=== PATIENT | female | born 2000 | race Two or more races ===

== ENCOUNTER → 2020-06-03 | Outpatient (CLI) | payer BC ==
--- NOTE | 2020-06-03 17:00 | RAD ---
Examination: US OB >14 WEEKS History: Reason: SMALL FOR DATES / Spl. Instructions: / History: Comparison/Correlation: None Findings: OB ultrasound exam was performed. Single living intrauterine gestation is present with heart rate of 152 bpm. movement including cardiac activity noted. Placenta is evident along the posterior wall and is grade 1. anatomy identified: Four-chamber heart, three-vessel cord and insertion, urinary bladder, stomach, bilateral kidneys, spine, and brain. Bilateral upper and lower extremities also seen. Cephalic lie noted. Biparietal diameter of 4.12 cm corresponds to 18 weeks 3 days Head circumference of 14.27 cm corresponding to 17 weeks 4 days Abdominal circumference 11.19 cm corresponding to 17 weeks 0 day Femur length 2.31 cm corresponds to 17 weeks 0 day Head circumference to abdominal circumference ratio is 1.2. Estimated weight is 180 g Average ultrasound age is 17 weeks 4 days Ultrasound EDC is 11/07/2020 Impression: Single living intrauterine gestation with average ultrasound age of 17 weeks 4 days. Electronically signed by: Rigoberto Toscano MD (06/03/2020 4:58 PM) [id number]
== END ==
LOC: US 15:08
PROVIDERS: ATTEND Family Medicine
DX: O26.842 Uterine size-date discrepancy, second trimester (principal); Z3A.17 17 weeks gestation of pregnancy
CPT/HCPCS: 76805

== ENCOUNTER → 2020-10-22 | Outpatient (CLI) | payer BC ==
--- NOTE | 2020-10-22 15:06 | RAD ---
EXAM: OB ULTRASOUND, > 14 WEEKS HISTORY: Small for dates. COMPARISON: 06/03/2020. TECHNIQUE: Multiple grayscale images, color Doppler, and M-mode images of the uterus are obtained. FINDINGS: There is a single intrauterine gestation in cephalic presentation. The placenta is grade 2 and quiller runner ior in location without evidence of placenta previa. The amount of amniotic fluid appears appropriate . Amniotic fluid index is 10.4 cm. The cervix is obscured Biometrical data: BPD = 8.38 cm for 33 weeks 5 days and the 1st percentile. HC = 31.38 cm for 35 weeks 1 days and the 1st percentile. AC = 32.11 cm for 36 weeks 0 days and the 20th percentile. FL = 6.71 cm for 34 weeks 4 days and the 1st percentile. HC/AC ratio = 0.98. Overall, the estimated sonographic gestational age is 34 weeks and 6 days for an estimated date of de livery of 11/27/2020. The estimated date of delivery provided by the last menstrual period is 11/07/2020 . Estimated weight is 2642 grams. This corresponds with the 13th percentile for a gestational age of 37 weeks and 5 days based on LMP. The anatomy is not formally assessed. The heart is normal at 139 bpm. IMPRESSION: 1. Single intrauterine fetus with normal heart rate in cephalic presentation with gestational age bas ed on ultrasound measurements of 34 weeks and 6 days. The estimated weight is at the 13th perce ntile for a gestational age of 37 weeks and 5 days based on LMP. 2. anatomy is not formally assessed on this exam. Electronically signed by: Niurka King MD (10/22/2020 3:03 PM) [id number]
== END ==
LOC: US 14:22
PROVIDERS: ATTEND Family Medicine
DX: O36.5930 Maternal care for other known or suspected poor fetal growth, third trimester, not applicable or unspecified (principal)
CPT/HCPCS: 76805

== ENCOUNTER 2020-10-27 12:44 | Observation (INO) | payer BC ==
[2020-10-27] MEDS ORDERED: IV RINGERS,LACTATED 1000ML 1,000 ML IV PRN (13:15)
[2020-10-27 13:20] LABS: BILIRUBIN,URINE NEGATIVE (NEG); CLARITY,URINE CLEAR; COLOR,URINE YELLOW; NITRITE,URINE NEGATIVE (NEG); PROTEIN,URINE NEGATIVE (NEG-TRACE); UROBILINOGEN,URINE 0.2 mg/dL (0.2 mg/dL)
[2020-10-27 13:37] LABS: BACTERIA,URINE FEW /HPF (0-FEW); RBC,URINE 0 /HPF (0-2)
== END 2020-10-27 15:50 | disposition home or self-care (01) ==
LOC: 3 SO LND 12:44
PROVIDERS: ADMIT Family Medicine; ATTEND Family Medicine
DX: O26.853 Spotting complicating pregnancy, third trimester (principal); Z20.822 Contact with and (suspected) exposure to COVID-19; O62.9 Abnormality of forces of labor, unspecified; Z3A.38 38 weeks gestation of pregnancy; Z79.899 Other long term (current) drug therapy
CPT/HCPCS: 59025; 81001; 87086; G0378; G0379

== ENCOUNTER 2020-10-27 19:35 | Inpatient (IN) | payer BC ==
[~2020-10-27] VITALS: Ht 149.9 cm; Wt 56.0 kg
[2020-10-27] MEDS ORDERED: IV RINGERS,LACTATED 1000ML 1,000 ML IV SCH ×2 (20:00→20:30)
[2020-10-27] MEDS ORDERED: ACETAMINOPHEN 325 MG TABLET. PO PRN ×2 (20:00→21:30)
[2020-10-27 20:21] LABS: BILIRUBIN,URINE NEGATIVE (NEG); CLARITY,URINE CLEAR; COLOR,URINE YELLOW; NITRITE,URINE NEGATIVE (NEG); PH,URINE 6.5 (<5.0-8.0); PROTEIN,URINE NEGATIVE (NEG-TRACE); UROBILINOGEN,URINE 0.2 mg/dL (0.2 mg/dL)
[2020-10-27] MEDS ORDERED: OXYTOCIN 30 UNIT/500 ML PREMIX 500 ML IV ONE (20:23)
[2020-10-27] MEDS ORDERED: 0.9 % SODIUM CHLORIDE 10 ML DISP.SYRIN. IV PRN ×2 (20:30→21:30)
[2020-10-27] MEDS ORDERED: ONDANSETRON PF 4 MG/2 ML VIAL. IVP PRN (20:30)
[2020-10-27] MEDS ORDERED: BUTORPHANOL 2 MG/ML VIAL. IVP PRN ×2 (20:30)
[2020-10-27] MEDS ORDERED: LIDOCAINE 1% PF 30 ML VIAL. INJ PRN (20:30)
[2020-10-27] MEDS ORDERED: fentaNYL PF VIAL 100 MCG/2 ML VIAL IVP PRN ×2 (20:30)
[2020-10-27] MEDS ORDERED: TERBUTALINE 1 MG/ML VIAL. SQ PRN (20:30)
[2020-10-27] MEDS ORDERED: IBUPROFEN 400 MG TABLET. PO PRN (20:30)
[2020-10-27] MEDS ORDERED: OXYTOCIN 30 UNIT/500 ML PREMIX 500 ML IV PRN ×2 (20:30→21:30)
[2020-10-27 20:32] LABS: BACTERIA,URINE FEW /HPF (0-FEW); RBC,URINE 0 /HPF (0-2)
[2020-10-27 20:43] LABS: BASO % 0 % (0-3); EOS # 0.1 x10^3/uL (0.0-0.7); EOS % 1 % (0-3); HEMATOCRIT 39.1 % (36.0-47.0); HEMOGLOBIN 13.3 g/dL (12.0-15.5); LYMPH % 17 % (24-48); MEAN CORPUSCULAR HEMOGLOBIN 31 pg (25-35); MEAN CORPUSCULAR HGB CONC 34 g/dL (31-37); MEAN CORPUSCULAR VOLUME 91 fL (79-100); MONO # 0.8 x10^3/uL (0.0-1.1); MONO % 7 % (0-9); NEUT # 8.7 x10^3/uL (1.8-7.7); NEUT % 75 % (31-73); PLATELET COUNT 214 x10^3/uL (140-400); RED BLOOD COUNT 4.29 x10^6/uL (3.50-5.40); RED CELL DISTRIBUTION WIDTH 12.7 % (11.5-14.5); WHITE BLOOD COUNT 11.6 x10^3/uL (4.0-11.0)
--- NOTE | 2020-10-27 21:27 | PDOC1 ---
OB - History Hx of Present Care: Good Care Ultrasounds: Normal mid trimester US Obstetrical Complications: None Medical Complications: None Past Family/Social History * Past Medical, Surgical, Family and Obstetric Histories reviewed from chart. Rubella: Immune RPR/VDRL: Negative GBS Status: Negative HBsAG: Negative OB - Chief Complaint & HPI Date of Admission: Date of Admission: October 27, 2020 at 20:14 Chief Complaint/History : 2 Para: 1 EGA: 39 Reason for admission: active labor Admission Nurse Assessment Rev: Yes OB - Admission Exam Physical Exam HEENT: Normal Heart: Regular Rate Lungs: Clear Abdomen: Gravid, Non tender, Soft Extremities: Edema Reflexes: Normal Cervical Dilatation: 7cm Effacement: 75% Station: -1 Membranes: Intact Heart Rate: Normal Accelerations: Accelerations Present Decelerations: No decelerations Contractions on Admission: < 5 Minutes Apart Intensity: Moderate Text A: 39 wks IUP Active labor P : Admit labor management. JOSE JUAN RANGEL Jr, MD October 27, 2020 21:27
--- NOTE | 2020-10-27 21:28 | PDOC ---
VAGINAL DELIVERY DATE DATE: 10/27/20 TIME: 21:27 : 2 Para: 2 EGA: 39 VAGINAL DELIVERY: VTX VACCUM ASSISTED: No PLACENTA: Spontaneous 8/9 SEX: Male WEIGHT Weight [ 3370 gm ] Nuchal Cord: No Amniotic Fluid: Clear PAIN: Natural EPISIOTOMY: No EXTENSION: Yes (2nd degree midline laceration and Left labial laceration) REPAIRED WITH 2-0 vicryl and 3-0 chromic EBL 300 ml COMPLICATIONS none CONDITION pt. stable Signs of Intrauterine Infectio: None Shoulder Dystocia: No JOSE JUAN RANGEL Jr, MD October 27, 2020 21:28
[2020-10-27] MEDS ORDERED: PHENYLEPH/MINERAL OIL/PETROLAT RECTAL OINTMENT TUBE. RC PRN (21:30)
[2020-10-27] MEDS ORDERED: TDaP (Adacel) per PROTOCOL. MC PRN (21:30)
[2020-10-27] MEDS ORDERED: MAGNESIUM HYDROXIDE 2,400 MG/30 ML ORAL.SUSP. PO PRN (21:30)
[2020-10-27] MEDS ORDERED: HYDROCORTISONE 1% TOPICAL OINTMENT 30GM TUBE. TP PRN (21:30)
[2020-10-27] MEDS ORDERED: BENZOCAINE 20% TOPICAL AEROSOL SPRAY 57GM CAN. TP PRN (21:30)
[2020-10-27] MEDS ORDERED: MMR per PROTOCOL. MC PRN (21:30)
[2020-10-27] MEDS ORDERED: ZOLPIDEM 5 MG TABLET. PO PRN (21:30)
[2020-10-27] MEDS ORDERED: diphenhydrAMINE HCL 25 MG CAPSULE PO PRN (21:30)
[2020-10-27] MEDS ORDERED: SIMETHICONE 80 MG TAB.CHEW PO PRN (21:30)
[2020-10-27] MEDS ORDERED: oxyCODONE/APAP 5/325 1 TAB TABLET PO PRN (21:30)
[2020-10-27] MEDS ORDERED: MAG HYDROX/ALUMINUM HYD/SIMETH 30 ML ORAL.SUSP PO PRN (21:30)
[2020-10-27] MEDS: IBUPROFEN 400 MG TABLET. PO PRN (23:22)
[2020-10-28 00:13] VITALS: BP 106/57
[2020-10-28 05:04] VITALS: BP 101/55
[2020-10-28 06:15] LABS: BASO % 0 % (0-3); EOS # 0.1 x10^3/uL (0.0-0.7); EOS % 1 % (0-3); HEMATOCRIT 34.9 % (36.0-47.0); HEMOGLOBIN 11.8 g/dL (12.0-15.5); LYMPH # 1.9 x10^3/uL (1.0-4.8); LYMPH % 13 % (24-48); MEAN CORPUSCULAR HEMOGLOBIN 31 pg (25-35); MEAN CORPUSCULAR HGB CONC 34 g/dL (31-37); MEAN CORPUSCULAR VOLUME 93 fL (79-100); MONO # 0.9 x10^3/uL (0.0-1.1); MONO % 6 % (0-9); NEUT # 12.3 x10^3/uL (1.8-7.7); NEUT % 81 % (31-73); PLATELET COUNT 221 x10^3/uL (140-400); RED BLOOD COUNT 3.75 x10^6/uL (3.50-5.40); RED CELL DISTRIBUTION WIDTH 12.4 % (11.5-14.5); WHITE BLOOD COUNT 15.2 x10^3/uL (4.0-11.0)
[2020-10-28] MEDS: FERROUS SULFATE 325 MG TABLET. PO SCH ×2 (08:00→17:00)
[2020-10-28 08:55] VITALS: BP 102/57
[2020-10-28] MEDS: DOCUSATE SODIUM 100 MG CAPSULE. PO PRN ×2 (09:13→17:07)
[2020-10-28] MEDS: MULTIVITAMIN with MINERAL TABLET. PO SCH (09:13)
[2020-10-28] MEDS ORDERED: ACETAMINOPHEN 500 MG TABLET PO PRN (09:30)
[2020-10-28 12:01] VITALS: BP 104/59
--- NOTE | 2020-10-28 12:01 | PDOC ---
PROGRESS NOTES Date of Service DATE: 10/28/20 TIME: 11:59 Subjective Subjective Patient feels well PPD#1, Good pain control. Decreased bleeding. Tolerating diet. Ambulating Objective Objective Vital Signs Date Time Temp Pulse Resp B/P (MAP) Pulse Ox O2 Delivery O2 Flow Rate FiO2 10/28/20 08:55 98.4 71 16 102/57 (72) Room Air 98.4 10/28/20 05:04 98 Physical Exam Abdomen: Normal bowel sounds, Other (uterus firm) Heart: Regular rate Extremities: No edema General: Alert Lungs: Clear to auscultation Assessment Assessment PPD #1 Plan Plan of Care Routine care - Network Mgr phone used Comment Review of Relevant I have reviewed the following items trevon (where applicable) has been applied. Labs Laboratory Tests Test 10/27/20 20:09 10/27/20 20:10 10/27/20 20:15 10/28/20 05:40 White Blood Count 11.6 x10^3/uL (4.0-11.0) 15.2 x10^3/uL (4.0-11.0) Red Blood Count 4.29 x10^6/uL (3.50-5.40) 3.75 x10^6/uL (3.50-5.40) Hemoglobin 13.3 g/dL (12.0-15.5) 11.8 g/dL (12.0-15.5) Hematocrit 39.1 % (36.0-47.0) 34.9 % (36.0-47.0) Mean Corpuscular Volume 91 fL (79-100) 93 fL (79-100) Mean Corpuscular Hemoglobin 31 pg (25-35) 31 pg (25-35) Mean Corpuscular Hemoglobin Concent 34 g/dL (31-37) 34 g/dL (31-37) Red Cell Distribution Width 12.7 % (11.5-14.5) 12.4 % (11.5-14.5) Platelet Count 214 x10^3/uL (140-400) 221 x10^3/uL (140-400) Neutrophils (%) (Auto) 75 % (31-73) 81 % (31-73) Lymphocytes (%) (Auto) 17 % (24-48) 13 % (24-48) Monocytes (%) (Auto) 7 % (0-9) 6 % (0-9) Eosinophils (%) (Auto) 1 % (0-3) 1 % (0-3) Basophils (%) (Auto) 0 % (0-3) 0 % (0-3) Neutrophils # (Auto) 8.7 x10^3/uL (1.8-7.7) 12.3 x10^3/uL (1.8-7.7) Lymphocytes # (Auto) 2.0 x10^3/uL (1.0-4.8) 1.9 x10^3/uL (1.0-4.8) Monocytes # (Auto) 0.8 x10^3/uL (0.0-1.1) 0.9 x10^3/uL (0.0-1.1) Eosinophils # (Auto) 0.1 x10^3/uL (0.0-0.7) 0.1 x10^3/uL (0.0-0.7) Basophils # (Auto) 0.0 x10^3/uL (0.0-0.2) 0.0 x10^3/uL (0.0-0.2) Treponema pallidum Antibody Nonreactive (Nonreactive) Urine Collection Type Unknown Urine Color Yellow Urine Clarity Clear Urine pH 6.5 (<5.0-8.0) Urine Specific [place] <=1.005 (1.000-1.030) Urine Protein Negative mg/dL (NEG-TRACE) Urine Glucose (UA) 100 mg/dL (NEG) Urine Ketones (Stick) Negative mg/dL (NEG) Urine Blood Negative (NEG) Urine Nitrite Negative (NEG) Urine Bilirubin Negative (NEG) Urine Urobilinogen Dipstick 0.2 mg/dL (0.2 mg/dL) Urine Leukocyte Esterase Negative (NEG) Urine RBC 0 /HPF (0-2) Urine WBC 5-10 /HPF (0-4) Urine Squamous Epithelial Cells Few /LPF Urine Bacteria Few /HPF (0-FEW) SARS-CoV-2 RNA (PIOTR) Negative (Negative) SARS-CoV-2 Antigen (Rapid) Negative (NEGATIVE) Laboratory Tests Test 10/27/20 20:09 10/27/20 20:10 10/27/20 20:15 10/28/20 05:40 White Blood Count 11.6 x10^3/uL (4.0-11.0) 15.2 x10^3/uL (4.0-11.0) Red Blood Count 4.29 x10^6/uL (3.50-5.40) 3.75 x10^6/uL (3.50-5.40) Hemoglobin 13.3 g/dL (12.0-15.5) 11.8 g/dL (12.0-15.5) Hematocrit 39.1 % (36.0-47.0) 34.9 % (36.0-47.0) Mean Corpuscular Volume 91 fL (79-100) 93 fL (79-100) Mean Corpuscular Hemoglobin 31 pg (25-35) 31 pg (25-35) Mean Corpuscular Hemoglobin Concent 34 g/dL (31-37) 34 g/dL (31-37) Red Cell Distribution Width 12.7 % (11.5-14.5) 12.4 % (11.5-14.5) Platelet Count 214 x10^3/uL (140-400) 221 x10^3/uL (140-400) Neutrophils (%) (Auto) 75 % (31-73) 81 % (31-73) Lymphocytes (%) (Auto) 17 % (24-48) 13 % (24-48) Monocytes (%) (Auto) 7 % (0-9) 6 % (0-9) Eosinophils (%) (Auto) 1 % (0-3) 1 % (0-3) Basophils (%) (Auto) 0 % (0-3) 0 % (0-3) Neutrophils # (Auto) 8.7 x10^3/uL (1.8-7.7) 12.3 x10^3/uL (1.8-7.7) Lymphocytes # (Auto) 2.0 x10^3/uL (1.0-4.8) 1.9 x10^3/uL (1.0-4.8) Monocytes # (Auto) 0.8 x10^3/uL (0.0-1.1) 0.9 x10^3/uL (0.0-1.1) Eosinophils # (Auto) 0.1 x10^3/uL (0.0-0.7) 0.1 x10^3/uL (0.0-0.7) Basophils # (Auto) 0.0 x10^3/uL (0.0-0.2) 0.0 x10^3/uL (0.0-0.2) Treponema pallidum Antibody Nonreactive (Nonreactive) Urine Collection Type Unknown Urine Color Yellow Urine Clarity Clear Urine pH 6.5 (<5.0-8.0) Urine Specific [place] <=1.005 (1.000-1.030) Urine Protein Negative mg/dL (NEG-TRACE) Urine Glucose (UA) 100 mg/dL (NEG) Urine Ketones (Stick) Negative mg/dL (NEG) Urine Blood Negative (NEG) Urine Nitrite Negative (NEG) Urine Bilirubin Negative (NEG) Urine Urobilinogen Dipstick 0.2 mg/dL (0.2 mg/dL) Urine Leukocyte Esterase Negative (NEG) Urine RBC 0 /HPF (0-2) Urine WBC 5-10 /HPF (0-4) Urine Squamous Epithelial Cells Few /LPF Urine Bacteria Few /HPF (0-FEW) SARS-CoV-2 RNA (PIOTR) Negative (Negative) SARS-CoV-2 Antigen (Rapid) Negative (NEGATIVE) Medications Current Medications Ringer's Solution 1,000 ml @ 125 mls/hr Q8H IV Last administered on 10/27/20at 20:00; Start 10/27/20 at 20:00; Stop 10/28/20 at 09:31; Status DC Acetaminophen (Tylenol) 1,000 mg PRN Q6HRS PRN PO PAIN, TEMP > 100.5'F; Start 10/27/20 at 20:00; Stop 10/28/20 at 09:29; Status DC Oxytocin 500 ml @ As Directed STK-MED ONCE IV ; Start 10/27/20 at 20:23; Stop 10/27/20 at 20:24; Status DC Sodium Chloride (Normal Saline Flush) 3 ml QSHIFT PRN IV AFTER MEDS AND BLOOD DRAWS; Start 10/27/20 at 20:30 Ringer's Solution 1,000 ml @ 125 mls/hr Q8H IV ; Start 10/27/20 at 20:30 Butorphanol Tartrate (Stadol) 1 mg PRN Q1HR PRN IVP mild to moderate labor pain; Start 10/27/20 at 20:30 Butorphanol Tartrate (Stadol) 2 mg PRN Q1HR PRN IVP Severe labor pain; Start 10/27/20 at 20:30 Fentanyl Citrate (Fentanyl 2ml Vial) 50 mcg PRN Q30MIN PRN IVP Mild to moderate pain; Start 10/27/20 at 20:30 Fentanyl Citrate (Fentanyl 2ml Vial) 100 mcg PRN Q30MIN PRN IVP Severe pain; Start 10/27/20 at 20:30 Ondansetron HCl (Zofran) 4 mg PRN Q4HRS PRN IVP NAUSEA/VOMITING; Start 10/27/20 at 20:30 Terbutaline Sulfate (Brethine) 0.25 mg 1X PRN PRN SQ SEE COMMENTS; Start 10/27/20 at 20:30; Stop 10/28/20 at 20:29 Lidocaine HCl (Xylocaine 1% Pf 30ml Vial) 30 ml 1X PRN PRN INJ SEE COMMENTS Last administered on 10/27/20at 21:32; Start 10/27/20 at 20:30; Stop 10/29/20 at 20:29 Oxytocin 500 ml @ 0 mls/hr CONT PRN PRN IV Post delivery bleeding Last administered on 10/27/20at 21:35; Start 10/27/20 at 20:30 Ibuprofen (Motrin) 800 mg PRN Q6HRS PRN PO PAIN Last administered on 10/28/20at 09:13; Start 10/27/20 at 20:30; Stop 10/28/20 at 09:30; Status DC Sodium Chloride (Normal Saline Flush) 10 ml QSHIFT PRN IV AFTER MEDS AND BLOOD DRAWS; Start 10/27/20 at 21:30 Oxytocin 500 ml @ 62.5 mls/hr CONT PRN IV SEE I/O RECORD; Start 10/27/20 at 21:30; Stop 10/28/20 at 05:29; Status DC Acetaminophen (Tylenol) 650 mg PRN Q6HRS PRN PO MILD PAIN / TEMP > 100.3'F; Start 10/27/20 at 21:30; Stop 10/28/20 at 09:30; Status DC Ibuprofen (Motrin) 800 mg PRN Q8HRS PRN PO INFLAMMATION/PAIN PREVENTION Last administered on 10/27/20at 23:22; Start 10/27/20 at 21:30 Docusate Sodium (Colace) 100 mg PRN BID PRN PO CONSTIPATION Last administered on 10/28/20at 09:13; Start 10/27/20 at 21:30 Magnesium Hydroxide (Milk Of Magnesia) 2,400 mg PRN DAILY PRN PO CONSTIPATION 2ND CHOICE; Start 10/27/20 at 21:30 Al Hydroxide/Mg Hydroxide (Mylanta Plus Xs) 30 ml PRN Q4HRS PRN PO HEARTBURN / GAS; Start 10/27/20 at 21:30 Simethicone (Gas-X) 80 mg PRN AFTMEALHC PRN PO GAS / BLOATING; Start 10/27/20 at 21:30 Diphenhydramine HCl (Benadryl) 25 mg PRN Q6HRS PRN PO ITCHING; Start 10/27/20 at 21:30 Benzocaine (Americaine) 1 spray PRN QID PRN TP TOPICAL PAIN Last administered on 10/27/20at 23:22; Start 10/27/20 at 21:30 Phenyleph/Shark Oil/Min Oil/Petrol (Preparation H) 1 lily PRN QID PRN RC RECTAL PAIN; Start 10/27/20 at 21:30 Hydrocortisone (Cortaid) 1 lily PRN QID PRN TP PERINEAL PAIN; Start 10/27/20 at 21:30 Ferrous Sulfate (Feosol) 325 mg BIDWMEALS PO ; Start 10/28/20 at 08:00 Zolpidem Tartrate (Ambien) 5 mg PRN QHS PRN PO INSOMNIA, MAY REPEAT X1; Start 10/27/20 at 21:30 Info (Do NOT chart on this placeholder) 1 ea 1X PRN PRN MC SEE COMMENTS; Start 10/27/20 at 21:30 Info (Do NOT chart on this placeholder) 1 ea 1X PRN PRN MC SEE COMMENTS; Start 10/27/20 at 21:30 Oxycodone/ Acetaminophen (Percocet 5/325) 2 tab PRN Q4HRS PRN PO MODERATE PAIN, SEVERE PAIN; Start 10/27/20 at 21:30 Multivitamins (Thera M Plus) 1 tab DAILY PO Last administered on 10/28/20at 09:13; Start 10/28/20 at 09:00 Acetaminophen (Tylenol) 1,000 mg PRN Q6HRS PRN PO MILD PAIN / TEMP > 100.3'F; Start 10/28/20 at 09:30 Vitals/I & O Vital Sign - Last 24 Hours 10/28/20 10/28/20 10/28/20 10/28/20 00:13 05:04 08:43 08:55 Temp 98.2 98.2 98.4 98.2 98.2 98.4 Pulse 69 68 71 Resp 16 16 16 B/P (MAP) 106/57 (73) 101/55 (70) 102/57 (72) Pulse Ox 98 98 O2 Delivery Room Air Room Air Room Air Room Air Justifications for Admission Other Justification MAXIMO HAYES MD October 28, 2020 12:01
[2020-10-28 16:37] VITALS: BP 104/50
[2020-10-28] MEDS: IBUPROFEN 400 MG TABLET. PO PRN (19:49)
[2020-10-28 20:20] VITALS: BP 108/66
[2020-10-29 02:00] VITALS: BP 128/72
[2020-10-29 08:00] VITALS: BP 106/51
[2020-10-29] MEDS: MULTIVITAMIN with MINERAL TABLET. PO SCH (08:42)
[2020-10-29] MEDS: DOCUSATE SODIUM 100 MG CAPSULE. PO PRN (08:42)
[2020-10-29] MEDS: IBUPROFEN 400 MG TABLET. PO PRN (08:42)
--- NOTE | 2020-10-29 09:03 | PDOC3 ---
OB DISCHARGE SUMMARY DATE OF ADMISSION: 10/27/20 DATE OF DISCHARGE: 10/29/20 REASON FOR ADMISSION: Onset of labor INTRAPARTUM PROCEDURES: Spontanous Vag Deliv DISCHARGE INFORMATION: Activity (no sexual activity 6 weeks), Medications (See MRAD), Instructions (F/U 6 weeks) HOSPITAL COURSE Routine CONDITION AT DISCHARGE Stable MAXIMO HAYES MD October 29, 2020 09:03
[2020-10-29] MEDS ORDERED: IBUP-1060 PO (09:10)
[2020-10-29] MEDS ORDERED: HYDR-2761 PO (09:10)
--- NOTE | 2020-10-29 09:11 | SNU/HH DC ---
DISCHARGE ORDERS DISCHARGE INFORMATION: DISCHARGE DATE: October 29, 2020 CONDITION ON DISCHARGE: Stable CODE STATUS: Code Status: Full [facility]: SNF STAY <30 DAYS: No DISCHARGE MEDICATIONS: Home Meds Active Scripts Ibuprofen (IBUPROFEN) 800 Mg Tablet, 800 MG PO TID for pain for 14 Days, #42 TAB Prov:MAXIMO HAYES MD 10/29/20 Hydrocodone Bit/Acetaminophen (HYDROCODONE-APAP 5-325 ) 1 Tab Tablet, 1 TAB PO PRN Q6HRS PRN for PAIN for 30 Days, #20 TAB 0 Refills Prov:MAXIMO HAYES MD 10/29/20 MAXIMO HAYES MD October 29, 2020 09:11
[2020-10-29 14:10] VITALS: BP 101/55
--- NOTE | 2020-10-29 16:27 | NUR ---
dismissed at 1410 amb with baby to in car. Baby in car seat. Rx for motrin and norco given to pt. 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
== END 2020-10-29 14:10 | disposition home or self-care (01) | DRG 807 ==
LOC: 3 SO LND 19:35 → OBSVTOIN 20:14
PROVIDERS: ADMIT Family Medicine; ATTEND Family Medicine
PROC: 0KQM0ZZ Repair Perineum Muscle, Open Approach (ICD-10-PCS; principal; 2020-10-27)
PROC: 10E0XZZ Delivery of Products of Conception, External Approach (ICD-10-PCS; 2020-10-27)
DX: O70.1 Second degree perineal laceration during delivery (principal); Z37.0 Single live birth; Z3A.39 39 weeks gestation of pregnancy; Z20.822 Contact with and (suspected) exposure to COVID-19
CPT/HCPCS: 36415; 81001; 85025; 86592; 86850; 86900; 86901; 87086; 87426; G0379; J2590; J3490; J7120; U0003; U0005; G0378